=== PATIENT | female | born 1955 ===

== ENCOUNTER 2021-08-29 07:09 | Day surgery (SDC) | payer OTHER | END 2021-08-29 12:45 | disposition home or self-care (01) | LOC: AMB-ENDOS 07:09 → CIR.AMB 09:00 → AMB-ENDOS 12:45 | PROVIDERS: ATTEND Surgery | DX: K63.5 Polyp of colon (principal); D37.4 Neoplasm of uncertain behavior of colon; E03.9 Hypothyroidism, unspecified; I10 Essential (primary) hypertension; Z79.82 Long term (current) use of aspirin ==